=== PATIENT | female | born 1975 | race Caucasian/White ===

== ENCOUNTER → 2019-08-20 08:05 | Outpatient (CLI) | payer OTHER, SELFPAY ==
--- NOTE | 2019-08-20 08:06 | CA_ITS ---
APPROVED REPORT EXAM: Comprehensive 2D, Doppler, and color-flow Echocardiogram Business Unit Director: Radha Cuevas CRT Ht: 5 ft 6 in Wt: 221lbs BSA: 2.09 BP: 158/79 mmHg Indications: Chest Pain, Shortness of Breath, Palpitations, edema, trigeminy, tremors, thyroid disease, 2D Dimensions LVOT 1.89 cm (M/F) 1.5-2.5 M-Mode Dimensions RVDd 2.65 cm (0.9-2.6) LVDd 5.83 cm (3.5-5.7) LVDs 4.03 cm (3.5-5.7) IVSd 1.10 cm (0.6-1.1) PWd 0.37 cm (0.6-1.1) EF (Teich) 57.70% FS 30.90% EDV (Teich) 168.50 mL ESV (Teich) 71.30 mL LV Diastology E/A Ratio 1.58 Mitral Valve MV A Velocity 69.00 (40-130 cm/s) Left Ventricle Left atrium is normal size, left ventricle is normal size, there is no concentric left ventricular hypertrophy, visually estimated ejection fraction 55% with no regional wall motion abnormality. Diastolic parameters are within normal range. Right Ventricle Right atrium and right ventricular normal size and contractility. Aortic Valve Aortic valve is grossly normal, there is no aortic stenosis or aortic insufficiency. Mitral Valve Mitral valve is grossly normal, there is no mitral stenosis, there is mild mitral regurgitation. Tricuspid Valve Tricuspid valve is grossly normal, there is mild tricuspid regurgitation. Tricuspid regurgitation jet velocity is inadequate for calculation of the right ventricular systolic pressure. Pulmonic Valve Pulmonic valve is poorly visualized. Great Vessels Aortic root is normal size. Pericardium No significant pericardial effusion noted. Conclusion 1. Normal left ventricular size, preserved left ventricular systolic function, visually estimated ejection fraction 55% with no regional wall motion abnormality, diastolic parameters are within normal range. 2. Mild mitral and tricuspid regurgitation. 3. No significant pericardial effusion noted. Electronically signed by : Dino Beltran, 08/21/2019 16:49:44
== END ==
PROVIDERS: PCP Nurse Practitioner Family; Visit Provider Internal Medicine Cardiovascular Disease
DX: R00.2 Palpitations (principal); R00.0 Tachycardia, unspecified; E05.90 Thyrotoxicosis, unspecified without thyrotoxic crisis or storm
CPT/HCPCS: 93306

== ENCOUNTER → 2020-01-19 12:08 | Outpatient (CLI) | payer OTHER, SELFPAY ==
[2020-01-19 13:59] LABS: Free T4 (Free Thyroxine) 0.81 ng/dl (0.78-2.19)
== END ==
PROVIDERS: PCP Nurse Practitioner Family; Visit Provider Internal Medicine
DX: E05.90 Thyrotoxicosis, unspecified without thyrotoxic crisis or storm (principal)
CPT/HCPCS: 36415; 84439; 84443

== ENCOUNTER → 2020-08-06 12:19 | Outpatient (CLI) | payer OTHER, SELFPAY ==
--- NOTE | 2020-08-06 12:56 | XR_ITS ---
PROCEDURE: XR SHOULDER RT MIN 2V CLINICAL INDICATION: RT shoulder pain COMPARISON: No exams were available for comparison FINDINGS: No fracture or dislocation. No lytic or blastic change. There is normal mineralization. The joint spaces are well-preserved. No significant degenerative/arthritic changes. No erosive changes evident. Other findings:None. IMPRESSION: No acute findings. Dictated by: Marcelino Tello MD 08/06/2020 14:20 Marcelino Tello MD in [place] 08/06/2020 14:20
--- NOTE | 2020-08-06 12:56 | XR_ITS ---
PROCEDURE: XR CERVICAL SPINE 3V CLINICAL INDICATION: neck pain/ shoulder pain COMPARISON: No exams were available for comparison FINDINGS: There is slight reversal cervical lordosis. Degenerative disc disease is present at C4-C5 and C5-C6 with anterior osteophytes present at both levels. No fracture or dislocation. No lytic or blastic change. There is a small right cervical rib and there is prominent transverse process of C7 on both sides Other findings:None. IMPRESSION: 1. Degenerative disc disease C4-C5 and C5-C6 with reversal cervical lordosis. 2. Small right-sided cervical rib Dictated by: Marcelino Tello MD 08/06/2020 13:36 Marcelino Tello MD in [place] 08/06/2020 13:36
== END ==
PROVIDERS: PCP Nurse Practitioner Family; Visit Provider Orthopaedic Surgery
DX: M54.2 Cervicalgia (principal); M25.511 Pain in right shoulder
CPT/HCPCS: 72040; 73030

== ENCOUNTER 2020-09-21 13:00 | Outpatient (RCR) | payer OTHER, SELFPAY ==
--- NOTE | 2020-08-16 12:01 | HMH.PTOPEV ---
PT Outpatient Evaluation Rehab PT Outpatient Evaluation Start: 08/16/20 11:43 Freq: Status: Active Protocol: Document 08/16/20 11:43 KEENA (Rec: 08/16/20 12:01 PDESEROUX [id number]) Electronically Signed By Tyson Ruiz, PT 08/16/20 11:43 Outpatient Therapy Subjective History Subjective History Pt. is a 44 year old female who presents to Outpatient PT clinic w/ complaints of constant and subacute cervical/RUE P! of insidious onset 2 months ago. Pt. describes symptoms as an throb and ache in the cervical spine that will shoot inferiorly into the RUE that worsens w/ head movements. Pt. denies having any symptoms into the LUE/L cervical anatomical regions.(-TTP L- sided) Recent diagnostic imaging positive for cervical DDD at C4-C5 and C5-C6 with reversal cervical lordosis. Pt . denies having injections for current pathology, and states no symptom relief w/ OTC Ibuprofen or Tylenol. Pt. reports her MD may refer to Pain Management if no symptom relief w/ PT. Pt. RTMD . Current medications include Ibuprofen, Tylenol, and Levothyroxine. PMH includes lumbar OA and DDD, Grave's Disease, and Hypothyroidism. Chief Complaint Pain,Swelling,Paresthesia, Weakness,Decreased Java [id number] Architect Strength Symptom Type Ache,Throb,Burning,Shooting Symptoms Relieved By Rest/Positioning,Ice Symptoms Aggravated By Supine,Sitting,Bending/ Stooping,Twisting,Lifting Prior Functional Limitations None Current Functional Limitations Reaching,Lifting,Dressing, Driving,Sleeping,Recreation Activity,Bending/Stooping Symptom Description Constant and Continuous, Constant but Variable Level of pain today (0-10) 3 Pain scale - at its best (0-10) 3 Pain scale - at its worst (0-10) 8 Cervical Eval Palp
== END 2020-10-01 13:00 | disposition home or self-care (01) ==
LOC: PT.CARL 13:00
PROVIDERS: PCP Nurse Practitioner Family; Visit Provider Orthopaedic Surgery
DX: M54.2 Cervicalgia; M25.511 Pain in right shoulder
CPT/HCPCS: 97012; 97014; 97110; 97140; 97163; G0283

== ENCOUNTER → 2022-03-08 06:46 | Outpatient (CLI) | payer OTHER, SELFPAY ==
[2022-03-08 18:40] LABS: Basophils % 0.9 % (0.1-2.0); Eosinophils # 0.1 K/mm3 (0.0-0.4); Eosinophils % 1.8 % (0.1-12.0); Hematocrit 39.6 % (37.0-47.0); Hemoglobin 12.1 g/dL (12.2-16.2); Lymphocytes # 1.5 K/mm3 (0.7-4.5); Lymphocytes % 29.2 % (10-50); Mean Corpuscular HGB Conc 30.6 g/dL (31.8-35.4); Mean Corpuscular Hemoglobin 30.9 pg (27.0-31.2); Mean Platelet Volume 9.7 fl (7.4-10.4); Monocytes # 0.4 K/mm3 (0.1-1.0); Monocytes % 8.1 % (1.7-9.3); Neutrophils # 3.1 K/mm3 (1.8-7.8); Platelet Count 350 K/mm3 (142-424); Red Blood Count 3.92 M/mm3 (4.20-5.40); Red Cell Distribution Width 13.3 % (11.5-17.5); White Blood Count 5.1 K/mm3 (4.8-10.8)
[2022-03-08 18:45] LABS: Alanine Aminotransferase 15 U/L (12-78); Albumin/Globulin Ratio 1.4 (1.1-1.8); Alkaline Phosphatase 80 U/L (38-126); Anion Gap 12.4 mEq/L (5-15); Aspartate Amino Transferase 25 U/L (14-36); Bilirubin,Total 0.2 mg/dl (0.2-1.3); Blood Urea Nitrogen 10 mg/dl (7-17); Calcium 9.1 mg/dl (8.4-10.2); Carbon Dioxide 24 mmol/L (22.0-30.0); Chloride 107 mmol/L (98-107); Chol/HDL Ratio 4.2 (1-3.5); Cholesterol 144 mg/dl (140-200); Estimated Glomerular Filt Rate 91 ml/min (>60); GFR (African American) 110 ML/MIN (>60); Globulin 2.9 g/dL (1.3-3.2); Glucose 81 mg/dl (74-100); HDL Cholesterol 34 mg/dl (40-60); Potassium 4.4 mmoL/L (3.5-5.1); Sodium 139 mmol/L (136-145); Total Protein,Serum 6.9 g/dl (6.3-8.2); Triglycerides 115 mg/dl (30-150); VLDL Cholesterol 23 mg/dL (0-40)
[2022-03-08 19:16] LABS: Thyroid Stimulating Hormone 0.17 uIU/mL (0.465-4.68)
[2022-03-08 19:27] LABS: Iron 52 ug/dL (37-170)
[2022-03-08 19:37] LABS: Total Iron Binding Capacity 325 ug/dL (265-497)
[2022-03-10 14:15] LABS: Direct LDL Cholesterol 81 mg/dL (100-129)
== END ==
PROVIDERS: PCP Family Medicine; Visit Provider Student in an Organized Health Care Education/Training Program
DX: E05.90 Thyrotoxicosis, unspecified without thyrotoxic crisis or storm (principal); R60.0 Localized edema
CPT/HCPCS: 80053; 80061; 83540; 83550; 84443; 85025

== ENCOUNTER → 2022-05-30 06:12 | Outpatient (CLI) | payer OTHER, SELFPAY ==
[2022-05-30 19:49] LABS: Thyroid Stimulating Hormone 1.32 uIU/mL (0.465-4.68)
== END ==
PROVIDERS: PCP Family Medicine; Visit Provider Family Medicine
DX: R53.83 Other fatigue (principal)
CPT/HCPCS: 84443

== ENCOUNTER → 2022-11-29 23:27 | Outpatient (CLI) | payer OTHER, SELFPAY ==
[2022-11-29 17:13] LABS: Chloride 104 mmol/L (98-107)
[2022-11-29 17:14] LABS: Potassium 4.2 mmoL/L (3.5-5.1); Sodium 139 mmol/L (136-145)
[2022-11-29 17:17] LABS: Anion Gap 14.2 mEq/L (5-15); Blood Urea Nitrogen 12 mg/dl (7-17); Calcium 9.2 mg/dl (8.4-10.2); Carbon Dioxide 25 mmol/L (22.0-30.0); Estimated Glomerular Filt Rate 78 ml/min (>60); GFR (African American) 94 ML/MIN (>60); Glucose 82 mg/dl (74-100)
[2022-11-29 17:20] LABS: Hemoglobin A1C 5.1 % (4.0-6.0)
[2022-11-29 17:50] LABS: Thyroid Stimulating Hormone 4.27 uIU/mL (0.465-4.68)
== END ==
PROVIDERS: PCP Family Medicine; Visit Provider Family Medicine
DX: Z00.00 Encounter for general adult medical examination without abnormal findings (principal); E03.9 Hypothyroidism, unspecified; Z79.899 Other long term (current) drug therapy
CPT/HCPCS: 80048; 83036; 84436; 84443

== ENCOUNTER → 2023-06-18 07:59 | Outpatient (CLI) | payer OTHER, SELFPAY ==
[2023-06-18 17:15] LABS: T4 (Thyroxine) 11.8 ug/dl (5.53-11.0)
[2023-06-18 17:29] LABS: Thyroid Stimulating Hormone 0.76 uIU/mL (0.465-4.68)
== END ==
PROVIDERS: PCP Family Medicine; Visit Provider Family Medicine
DX: E05.90 Thyrotoxicosis, unspecified without thyrotoxic crisis or storm (principal)
CPT/HCPCS: 84436; 84443

== ENCOUNTER 2023-10-12 07:55 | Outpatient (CLI) | payer OTHER, SELFPAY ==
[2023-10-12 16:40] LABS: Anion Gap 13.8 mEq/L (5-15); Blood Urea Nitrogen 14 mg/dl (7-17); Carbon Dioxide 22 mmol/L (22.0-30.0); Chloride 108 mmol/L (98-107); Estimated Glomerular Filt Rate 90 ml/min (>60); GFR (African American) 109 ML/MIN (>60); Glucose 102 mg/dl (74-100); Potassium 4.8 mmoL/L (3.5-5.1); Sodium 139 mmol/L (136-145)
[2023-10-12 16:42] LABS: Basophils # 0.1 K/mm3 (0-0.2); Basophils % 0.8 % (0.1-2.0); Eosinophils # 0.1 K/mm3 (0.0-0.4); Eosinophils % 1.6 % (0.1-12.0); Hematocrit 38.4 % (37.0-47.0); Hemoglobin 12.1 g/dL (12.2-16.2); Lymphocytes # 2.3 K/mm3 (0.7-4.5); Lymphocytes % 35.9 % (10-50); Mean Corpuscular HGB Conc 31.4 g/dL (31.8-35.4); Mean Corpuscular Hemoglobin 29.1 pg (27.0-31.2); Mean Corpuscular Volume 92.8 fl (81-99); Mean Platelet Volume 9.1 fl (7.4-10.4); Monocytes # 0.6 K/mm3 (0.1-1.0); Monocytes % 8.7 % (1.7-9.3); Neutrophils # 3.5 K/mm3 (1.8-7.8); Platelet Count 363 K/mm3 (142-424); Red Blood Count 4.14 M/mm3 (4.20-5.40); Red Cell Distribution Width 14.9 % (11.5-17.5); White Blood Count 6.5 K/mm3 (4.8-10.8)
[2023-10-12 17:12] LABS: Thyroid Stimulating Hormone 0.26 uIU/mL (0.465-4.68)
== END 2023-10-12 23:59 | disposition home or self-care (01) ==
LOC: LAB.DROPOF 10-14 07:56
PROVIDERS: PCP Family Medicine; Visit Provider Family Medicine
DX: E03.9 Hypothyroidism, unspecified (principal); E05.90 Thyrotoxicosis, unspecified without thyrotoxic crisis or storm
CPT/HCPCS: 80048; 84443; 85025

== ENCOUNTER 2024-07-24 14:20 | Outpatient (CLI) | payer OTHER, SELFPAY ==
[2024-07-24 16:41] LABS: Basophils # 0.1 K/mm3 (0-0.2); Basophils % 0.8 % (0.1-2.0); Eosinophils # 0.1 K/mm3 (0.0-0.4); Hematocrit 34.7 % (37.0-47.0); Hemoglobin 11.1 g/dL (12.2-16.2); Lymphocytes # 1.7 K/mm3 (0.7-4.5); Lymphocytes % 29.2 % (10-50); Mean Corpuscular Hemoglobin 28.9 pg (27.0-31.2); Mean Corpuscular Volume 90.4 fl (81-99); Mean Platelet Volume 11.4 fl (7.4-10.4); Monocytes # 0.4 K/mm3 (0.1-1.0); Neutrophils # 3.6 K/mm3 (1.8-7.8); Neutrophils % 60.7 % (37.0-80.0); Platelet Count 373 K/mm3 (142-424); Red Blood Count 3.84 M/mm3 (4.20-5.40); Red Cell Distribution Width 13.9 % (11.5-17.5)
[2024-07-24 17:23] LABS: Albumin Level 4.3 g/dl (3.5-5.0); Chloride 105 mmol/L (98-107); Potassium 4.4 mmoL/L (3.5-5.1); Sodium 139 mmol/L (136-145)
[2024-07-24 17:26] LABS: Alanine Aminotransferase 19 U/L (12-78); Albumin/Globulin Ratio 1.4 (1.1-1.8); Alkaline Phosphatase 65 U/L (38-126); Anion Gap 15.4 mEq/L (5-15); Aspartate Amino Transferase 27 U/L (14-36); Bilirubin,Total 0.2 mg/dl (0.2-1.3); Blood Urea Nitrogen 19 mg/dl (7-17); Carbon Dioxide 23 mmol/L (22.0-30.0); Estimated Glomerular Filt Rate 67 ml/min (>60); GFR (African American) 82 ML/MIN (>60); Globulin 3.1 g/dL (1.3-3.2); Total Protein,Serum 7.4 g/dl (6.3-8.2)
[2024-07-24 17:27] LABS: Glucose 107 mg/dl (74-100)
[2024-07-24 17:44] LABS: T4 (Thyroxine) 11.2 ug/dl (5.53-11.0)
[2024-07-24 17:58] LABS: Thyroid Stimulating Hormone 5.98 uIU/mL (0.465-4.68)
[2024-07-24 18:20] LABS: HIV Combo NEGATIVE (Negative)
[2024-07-24 18:54] LABS: Hepatitis C Ab Qual. W/ RFX NEGATIVE (Negative)
== END 2024-07-24 23:59 | disposition home or self-care (01) ==
LOC: LAB.DROPOF 07-25 08:38
PROVIDERS: PCP Family Medicine; Visit Provider Family Medicine
DX: E05.90 Thyrotoxicosis, unspecified without thyrotoxic crisis or storm (principal); Z11.4 Encounter for screening for human immunodeficiency virus [HIV]; Z11.59 Encounter for screening for other viral diseases
CPT/HCPCS: 80053; 84436; 84443; 85025; 86803; 87389

== ENCOUNTER 2024-09-29 13:45 | Outpatient (CLI) | payer OTHER, SELFPAY ==
[2024-09-29 16:45] LABS: Basophils % 0.9 % (0.1-2.0); Eosinophils % 0.9 % (0.1-12.0); Hematocrit 37.7 % (37.0-47.0); Hemoglobin 12.3 g/dL (12.2-16.2); Lymphocytes # 1.1 K/mm3 (0.7-4.5); Mean Corpuscular HGB Conc 32.6 g/dL (31.8-35.4); Mean Corpuscular Hemoglobin 30.8 pg (27.0-31.2); Mean Corpuscular Volume 94.5 fl (81-99); Mean Platelet Volume 11.3 fl (7.4-10.4); Monocytes # 0.6 K/mm3 (0.1-1.0); Monocytes % 13.1 % (1.7-9.3); Neutrophils # 2.8 K/mm3 (1.8-7.8); Neutrophils % 62.1 % (37.0-80.0); Platelet Count 294 K/mm3 (142-424); Red Blood Count 3.99 M/mm3 (4.20-5.40); Red Cell Distribution Width 15.2 % (11.5-17.5); White Blood Count 4.6 K/mm3 (4.8-10.8)
[2024-09-29 17:28] LABS: Iron 37 ug/dL (37-170)
[2024-09-29 17:38] LABS: Total Iron Binding Capacity 353 ug/dL (265-497)
[2024-09-29 18:00] LABS: Thyroid Stimulating Hormone 1.85 uIU/mL (0.465-4.68)
== END 2024-09-29 23:59 | disposition home or self-care (01) ==
LOC: LAB.DROPOF 09-30 13:24
PROVIDERS: PCP Nurse Practitioner Family; Visit Provider Nurse Practitioner Family
DX: D64.9 Anemia, unspecified (principal); E03.9 Hypothyroidism, unspecified
CPT/HCPCS: 83540; 83550; 84436; 84443; 85025

== ENCOUNTER 2025-02-11 10:27 | Outpatient (CLI) | payer OTHER, SELFPAY ==
[2025-02-11 16:54] LABS: Hematocrit 32.9 % (37.0-47.0); Hemoglobin 10.3 g/dL (12.2-16.2); Immature Granulocytes % 0.2 %; Mean Corpuscular HGB Conc 31.3 g/dL (31.8-35.4); Mean Corpuscular Hemoglobin 30.2 pg (27.0-31.2); Mean Corpuscular Volume 96.5 fl (81-99); Nucleated Red Blood Cells % 0 %; Platelet Count 357 K/mm3 (142-424); Red Blood Count 3.41 M/mm3 (4.20-5.40); Red Cell Distribution Width-SD 46.6 fL; White Blood Count 4.8 K/mm3 (4.8-10.8)
[2025-02-11 19:15] LABS: Thyroid Stimulating Hormone 2.27 uIU/mL (0.465-4.68)
[2025-02-12 10:22] LABS: Hepatitis B Surface Antigen Negative (Negative)
[2025-02-12 12:12] LABS: FSH 14.0 mIU/mL (.)
--- OUTSIDE RECORDS SUMMARY | 2025-02-13 10:30 | XMS_ITS | Clinical Summary ---
Author Organization [facility] Address [address] [place] [address] Care Team Providers Care Precinct Commanding Officer Name Role Phone Venkata Grady MD Primary Care Provider [phone] Allergies No known active allergies Medications levothyroxine (Synthroid) 200 MCG tabletIndication s:Hypothyroidism , unspecified type Take 1 tablet (200 mcg) by mouth 1 (one) time each day before breakfast. 90 tablet 3 03/28/2023 Active Active Problems Problem Noted Date Diagnosed Date Graves disease 03/18/2020 03/27/2023 Hypothyroidism 02/02/2020 03/27/2023 Sprain of lumbar region 09/14/2016 03/27/20 23 Family History Medical History Relation Name Comments Diabetes Mother Hypertension Mother Relation Name Status Comments Mother Social History Tobacco Use Types Packs/Day Years Used Date Smoking Tobacco: Never Smokeless Tobacco: Never Tobacco Cessation:Counseling Given: Not Answered Alcohol Use Standard Drinks/Week Comments No 0 (1 standard drink = 0.6 oz pur e alcohol) Comments No Sex and Gender Information Value Date Recorded Sex Assigned at Not on file Legal Sex Female 8:30 PM EDT Gender Identity Not on file Sexual Orientation Not on file Last Filed Vital Signs Vital Sign Reading Time Taken Comments Blood Pressure 123/80 03/27/2023 3:00 PM EDT Pulse 84 03/27/2023 3:00 PM EDT Temperature 36.9 C (98.4 F) 03/27/2023 3:00 PM EDT Respiratory Rate 14 03/27/2023 3:00 PM EDT Oxygen Saturation 99% 03/27/2023 3:00 PM EDT Inhaled Oxygen Concentration - - Weight 108 kg (238 lb 1.6 oz) 03/27/2023 3:00 PM EDT Height 167.6 cm (5' 6 ) 03/27/2023 3:00 PM EDT Body Mass Index 38.43 03/27/2023 3:00 PM EDT Plan of Treatment Health Maintenance Due Date Last Done Comments [facility]-Depression Screening 1977 [facility]-/Child/Adol SDOH Screenings 1977 [facility]- SDOH Screenings 09/05/1995 [facility]-Adult SDOH Screenings 09/05/1995 [facility]-DTaP,Tdap,and Td Vaccine s (1 - Tdap) 1996 [facility]-Hepatitis B Vaccines (1 of 3 - 19+ 3-dose series) 1996 CT Colonography 2022 Colonoscopy 2022 FIT-DNA 2022 FIT 2022 FOBT 2022 Sigmoidoscopy 2022 [facility]-Colorectal Cancer Screening 2022 [id number] Vaccine (1 - 20 24-25 season) 2024 [facility]-Influenza Vaccine (#1) 2025 [facility]-Pap Smear 03/27/2026 03/27/2023 [facility]-Zoster Vaccines (1 of 2) 09/05/2027 [facility]-Cervical Cancer Screening 03/27/2028 [facility]-HPV/Cotest 03/27/2028 03/27/2023 [facility]-HIV Screening Completed 10/03/2020 [facility]-Hepatitis C Screening Completed 10/03/2020 [facility]-Obesity Intervention Completed 03/27/2023 HPV Vaccines Aged Out No longer eligi ble based on patient's age to complete this topic [facility]-HIB Vaccines Aged Out No longer e ligible based on patient's age to complete this topic [facility]-Hepatitis A Vaccines Aged Out No longer eligible based on patient's age to complete this topic [facility]-IPV Vaccines Aged Out No longer e ligible based on patient's age to complete this topic [facility]-Pneumococcal Vaccine: Pediatrics (0 to 5 Years) and At-Risk Patients (6 to 49 Years) Aged Out No long er eligible based on patient's age to complete this topic [facility]-Rotavirus Vaccines Aged Out No lo nger eligible based on patient's age to complete this topic Procedures Procedure Name Priority Date/Time Associated Diagnosis Comments PAP TEST - CYTOLOGY Routine 03/27/2023 4 :26 PM EDT Encounter for gynecological examination (general) (routine) without abnormal findings HEPATITIS C ANTIBODY - ED W/REFLEX TO HCV QUANT PCR Routine 10/03/2020 8:18 PM EDT HIV 1/2 ANTIBODY/ANTIGEN SCREEN WITH REFLEX TO HIV I/II DIFFERENTIATION Routine 10/03/2020 8:18 PM EDT from Last 3 Months or Most Recently Relevant to Health Maintenance Results * (ABNORMAL) Pap Test (03/27/2023 4:26 PM EDT) Case Report Cytology Case: [id number] Authorizing Provider: Blessing Sanchez APRN, DNP Collected: 03/27/2023 1626 Ordering Location: Obstetrics & Gynecology Received: 03/28/2023 1012 First Screen: Yaritza Cameron Pathologist: Ronaldo Ellsworth MD Specimen: ThinPrep Pap Test, Liquid-Based Cervical/Vaginal 04/04/2023 12:28 PM EDT [facility] Interpretation NEGATIVE FOR INTRAEPITHELIAL LESION OR MALIGNANCY ENDOMETRIAL CELLS PRESENT IN A WOMAN 45 YEARS OF AGE OR OLDER(A) 04/04/2023 12:28 PM EDT [facility] at 1227 EDT Other Findings Shift in shaheed suggestive of bacterial vaginosis. 04/04/2023 12:28 PM EDT [facility] Specimen Adequacy Satisfactory for evaluation; endocervical/johnson sformation zone component present. Slide imaged by the ThinPrep Imaging system and selected 22 mullen reviewed then full manual screening. 04/04/2023 12:28 PM EDT [facility] Cervical cytology is a screening test primarily for squamous cancers and precursors and has associated false negative and positive results. New technologies such as liquid based sampling may decrease but will not eliminate all false negative results. Regular screening and follow-up of unexplained clinical signs and symptoms are recommended to minimize false negative results. Please see the ASCCP website (www.asccp.org)fo r followup recommendations. If HPV testing was requested, correlation with the results is suggested (please call Microbiology at [phone] for results). 04/04/2023 12:28 PM EDT [facility] Menstrual Status Cyclic 04/04/20 12:28 PM EDT [facility] Contraceptive History Intrauterine device 04/04/2023 12:28 PM EDT [facility] Screening Type Routine Screen 2022 12:28 PM EDT [facility] High Risk? No 04/04/2023 12:28 PM EDT [facility] HPV Testing Requested? Request HPV Testing Regardless of Pap Test Findings 04/04/2023 12:28 PM EDT [facility] Previous Cancer History No 04/04/2023 12:28 PM EDT [facility] Clinical Information Z01.419 - Encounter for gynecological examination (general) (routine) without abnormal findings [ICD-10-CM] 04/04/2023 12:28 PM EDT [facility] Last Menstrual Period 03/19/2023 04/04/2023 12:28 PM EDT [facility] Swab Vaginal and cervical cytologic material / Unknown Non-blood Collection / Unknown 03/27/2023 4:26 PM EDT 03/28/2023 10:12 AM EDT Blessing Sanchez RN LAB CYTOLOGY ORDERABLES Final Result Performing Organization Address City/[facility]/ZIP Co de Phone Number [facility] [address] [place] [address] * HIV 1 & 2 Antibody/Antigen Screen (10/03/2020 8:18 PM EDT) Pathologist [facility] HIV 1 Result NONREACTIVE Screening for HIV 1 and 2 antibodies is NONREACTIVE. No confirmatory testing is required. SUNQUEST 10/03/2020 8:18 PM EDT 10/03/2020 8:52 PM EDT Keanu James LAB BLOOD ORDERABLES Final Resul t SUNQUEST * [place] Hepatitis C Antibody (10/03/2020 8:18 PM EDT) Pathologist [facility] Hepatitis C Ab NEGATIVE Reference Range: Negative SUNQUEST 10/03/2020 8:18 PM EDT 10/03/2020 8:52 PM EDT James Salmon MD LAB BLOOD ORDERABLES Final Re sult SUNQUEST from Last 3 Months or Most Recently Relevant to Health Maintenance Insurance [facility] MEDICAID Care Teams Precinct Commanding Officer Relationship Specialty Start Date End Date Venkata Grady MD [address] [place] [address] [address] [place] [address] PCP - General 11/12/20
--- OUTSIDE RECORDS SUMMARY | 2025-02-13 10:30 | XMS_ITS | Clinical Summary ---
Author Organization [facility] Address [address] [place] [address] Care Team Providers Care Director College Name Role Phone Sid Barclay MD Primary Care Provider Allergies No known active allergies Medications cyclobenzaprine (FLEXERIL) 10 MG tablet 0 08/10/2016 Active HYDROcodone-acetam inophen (NORCO) 7.5-325 MG per tablet 08/14/2016 Active meloxicam (MOBIC) 15 MG tablet 0 08/21/2016 Active naproxen (NAPROSYN) 500 MG tablet 0 08/10/2016 Active tiZANidine (ZANAFLEX) 4 MG tablet 08/14/2016 Active traMADol (ULTRAM) 50 MG tablet 0 08/21/2016 Active Active Problems Problem Noted Date Diagnosed Date Sprain of lumbar region 09/14/2016 Family History Medical History Relation Name Comments No Known Problems Father Diabetes Mother Hypertension Mother Relation Name Status Comments Father Alive Mother Alive Social History Tobacco Use Types Packs/Day Years Used Date Smoking Tobacco: Never Smokeless Tobacco: Never Alcohol Use Standard Drinks/Week Comments Yes 0 (1 standard drink = 0.6 oz pur e alcohol) Rare Abuse Screen Answer Date Recorded Unsafe at Home or Work/School Not on file Feels Threatened by Someone? Not on file 03/2023 Does Anyone Keep You from Co ntacting Others or Doint Things Outside the Home? Not on file 04/09/2023 Physical Sign of Abuse Present Not on file 1 Housing Stability Answer Date Recorded Current Living Arrangements Not on file 03/2023 Potentially Unsafe Housing Conditions Not on maci e 04/09/2023 Family and Community Support Answer Johan e Recorded Help with Day-to-Day Activities Not on file 04/09/2023 Lonely or Isolated Not on file 04/09/2023 Employment Answer Date Recorded Do you want help finding or keeping work or a jorge b? Not on file 04/09/2023 Disabilities Answer Date Recorded Concentrating, Remembering, or Making Decisions Difficulty Not on file 04/09/2023 Doing Errands Independently Difficulty Not on fi le 04/09/2023 Education Answer Date Recorded Help with school or training? Not on file Preferred Language Not on file 04/09/2023 Comments No Sex and Gender Information Value Date Recorded Sex Assigned at Not on file Legal Sex Female 11:02 AM EDT Gender Identity Not on file Sexual Orientation Not on file Last Filed Vital Signs Vital Sign Reading Time Taken Comments Blood Pressure - - Pulse - - Temperature 36.3 C (97.4 F) 09/14/2016 11:24 AM EDT Respiratory Rate - - Oxygen Saturation - - Inhaled Oxygen Concentration - - Weight 96.8 kg (213 lb 6.4 oz) 09/14/2016 11:24 AM EDT Height 167.6 cm (5' 6 ) 09/14/2016 11:24 AM EDT Body Mass Index 34.44 09/14/2016 11:24 AM EDT Plan of Treatment Health Maintenance Due Date Last Done Comments Annual Gynecologic Pelvic an d Breast Exam 1975 TDAP/TD VACCINES (1 - Tdap) 1996 ANNUAL PHYSICAL 10/10/2016 HEPATITIS C SCREENING 10/10/2016 MAMMOGRAM 2017 COLOGUARD 2022 COLON CANCER SCREENING 5 YEA R SIGMOIDOSCOPY 2022 COLONOSCOPY 2022 [address]AL CANCER SCREENING 2022 CT COLONOGRAPHY 2022 FECAL OCCULT BLOOD TEST 2022 FIT Testing (1 year) 2022 COVID-19 Vaccine ( - 2023-2 5 season) 2024 INFLUENZA VACCINE 04/01/2025 Pneumococcal Vaccine 0-49 Aged Out No longer eligible based on patient's age to complete this topic Insurance [employer] Care Teams Director College Relationship Specialty Start Date End Date Sid Barclay MD [address] [facility] [address] ATTN: [facility] [address] PCP - General Emergency Medicine 08/31/16
== END 2025-02-11 23:59 | disposition home or self-care (01) ==
LOC: LAB.DROPOF 02-13 10:28
PROVIDERS: PCP Family Medicine; Visit Provider Family Medicine
DX: E03.9 Hypothyroidism, unspecified (principal); Z11.59 Encounter for screening for other viral diseases; N92.0 Excessive and frequent menstruation with regular cycle
CPT/HCPCS: 83001; 84443; 85025; 87340

== ENCOUNTER 2025-03-31 14:38 | Outpatient (CLI) | payer OTHER, SELFPAY ==
--- OUTSIDE RECORDS SUMMARY | 2025-03-31 14:40 | XMS_ITS | Clinical Summary ---
Author Organization [facility] Address [address] [place] [address] Care Team Providers Care Advertising Photographer Name Role Phone Sid Barclay MD Primary [...] TEST 2022 FIT Testing (1 year) 2022 INFLUENZA VACCINE 01/30/2025 Pneumococcal Vaccine 0-49 Aged Out No longer eligible based on patient's age to complete this topic Insurance [facility] Care Teams Advertising Photographer Relationship Specialty Start Date End Date Sid Barclay MD [address] [facility] [address] ATTN: [place] [id number] PCP - General Emergency Medicine 08/31/16
--- OUTSIDE RECORDS SUMMARY | 2025-03-31 14:40 | XMS_ITS | Clinical Summary ---
Author Organization [facility] Address [address] [place] [address] Care Team Providers Care Bullet Casting Operator Name Role Phone Venkata Grady MD Primary Care Provider [phone] Allergies No known active allergies Medications levothyroxine [...] 2022 Sigmoidoscopy 2022 [facility]-Colorectal Cancer Screening 2022 [id number] Vaccine (1 - 20 24-25 season) 2025 [facility]-Influenza Vaccine (#1) 2025 [facility]-Pap Smear 03/27/2026 [...] 4:26 PM EDT) Case Report Cytology Case: [id number] Authorizing Provider: Blessing Sanchez APRN, DNP Collected: 03/27/2023 1626 Ordering Location: Obstetrics & Gynecology Received: 03/28/2023 1012 First Screen: Yaritza Cameron Pathologist: Ronaldo Ellsworth MD Specimen: ThinPrep Pap Test, Liquid-Based Cervical/Vaginal 04/04/2023 12:28 PM EDT [facility] Interpretation NEGATIVE FOR INTRAEPITHELIAL LESION OR MALIGNANCY ENDOMETRIAL CELLS PRESENT IN A WOMAN 45 YEARS OF AGE OR OLDER(A) 04/04/2023 12:28 PM EDT [facility] at 1227 EDT Other Findings Shift in shaheed suggestive of bacterial vaginosis. 04/04/2023 12:28 PM EDT [facility] Specimen Adequacy Satisfactory for evaluation; endocervical/johnson sformation zone component present. Slide imaged by the ThinPrep Imaging system and selected 22 mullen reviewed then full manual screening. 04/04/2023 12:28 PM EDT [facility] Cervical cytology is a screening test [...] results is suggested (please call Microbiology at [phone] for results). 04/04/2023 12:28 PM EDT [facility] Menstrual Status Cyclic 04/04/20 12:28 PM EDT [facility] Contraceptive History Intrauterine device 04/04/2023 12:28 PM EDT [facility] Screening Type Routine Screen 2022 12:28 PM EDT [facility] High Risk? No 04/04/2023 12:28 PM EDT [facility] HPV Testing Requested? Request HPV Testing Regardless of Pap Test Findings 04/04/2023 12:28 PM EDT [facility] Previous Cancer History No 04/04/2023 12:28 PM EDT [facility] Clinical Information Z01.419 - Encounter for gynecological examination (general) (routine) without abnormal findings [ICD-10-CM] 04/04/2023 12:28 PM EDT [facility] Last Menstrual Period 03/19/2023 04/04/2023 12:28 PM EDT [facility] Swab Vaginal and cervical cytologic material / Unknown Non-blood Collection / Unknown 03/27/2023 4:26 PM EDT 03/28/2023 10:12 AM EDT Blessing Sanchez RN LAB CYTOLOGY ORDERABLES Final Result Performing Organization Address City/[facility]/ZIP Co de Phone Number [facility] [address] [place] [address] * HIV 1 & 2 Antibody/Antigen Screen (10/03/2020 8:18 PM EDT) Pathologist [facility] HIV 1 Result NONREACTIVE Screening for HIV 1 and 2 antibodies is NONREACTIVE. No confirmatory testing is required. SUNQUEST 10/03/2020 8:18 PM EDT 10/03/2020 8:52 PM EDT eKanu James LAB BLOOD ORDERABLES Final Resul t SUNQUEST * [place] Hepatitis C Antibody (10/03/2020 8:18 PM EDT) Pathologist [facility] Hepatitis C Ab NEGATIVE Reference Range: Negative SUNQUEST 10/03/2020 8:18 PM EDT 10/03/2020 8:52 PM EDT James Salmon MD LAB BLOOD ORDERABLES Final Re sult SUNQUEST from Last 3 Months or Most Recently Relevant to Health Maintenance Insurance AENA [facility] MEDICAID Care Teams Bullet Casting Operator Relationship Specialty Start Date End Date Venkata Grady MD [address] [place] [address] [address] [place] [address] PCP - General 11/12/20
--- NOTE | 2025-03-31 14:45 | MM_ITS ---
PROCEDURE INFORMATION: Exam: Bilateral Screening 3D Mammography Exam date and time: 03/31/2025 2:42 PM Age: 49 years old Clinical indication: Screening exam. TECHNIQUE: Imaging protocol: Bilateral Screening tomosynthesis and 2D mammography including computer-aided detection (CAD) when performed. COMPARISON: SCREEN MAMMO W CAD BILAT 05/23/2023 10:35 AM FINDINGS: MAMMOGRAPHY: Breast composition: The breasts are heterogeneously dense, which may obscure small masses. Mass: No suspicious masses. Architectural distortion: None. Calcifications: No suspicious calcifications. Asymmetric density: None. Skin thickening: None. Axillary adenopathy: None. IMPRESSION: No mammographic evidence of malignancy. Annual screening is recommended unless otherwise clinically indicated. ASSESSMENT: BI-RADS Category 1: Negative.
--- NOTE | 2025-03-31 15:15 | US_ITS ---
PROCEDURE: US TRANSVAGINAL CLINICAL INDICATION: abnormal uterine bleeding COMPARISON: No exams were available for comparison FINDINGS: Transvaginal sonographic images of the pelvis were obtained. UTERUS: 8.9cm x 9.1cmx 8.3cm retroverted with a combined endometrial thickness of 10.4mm. Fibroid 1: Posterior fibroid that measures 5.5 cm x 5.0 cm x 5.2 cm. Fibroid 2: 1.7 cm x 1.4 cm by 1.6 cm. LEFT OVARY: 3.7 cmx1.9 cmx2.3cm with a volume of 8.4ml. There is a follicle measuring 1.5 cm by 2.8 cm x 2.0 cm. RIGHT OVARY: 5.6cmx 4.8 cmx3.1cm with a volume of 43.2ml. Follicle 1. 2.4 cm x 2.5 cm x 2.8 cm. Follicle 2. 2.2 cm x 2.3 cm x 3.3 cm Both ovaries are seen and appear normal. Doppler flow to both ovaries are seen. There is trace fluid in the cul-de-sac. IMPRESSION: 1. Retroverted, enlarged uterus. The endometrium measures 10.4 mm. There are 2 fibroids within the uterus measuring 5.5 cm and 1.7 cm. 2. Both ovaries are seen and appear normal. They both contain follicles. 3. There is trace fluid in the cul-de-sac Dictated by: Donavon Locke MD 03/31/2025 16:58 Donavon Locke MD in [place] 03/31/2025 16:58
== END 2025-03-31 23:59 | disposition home or self-care (01) ==
LOC: RAD 14:39
PROVIDERS: PCP Family Medicine; Visit Provider Obstetrics & Gynecology
DX: Z12.31 Encounter for screening mammogram for malignant neoplasm of breast (principal); R92.333 Mammographic heterogeneous density, bilateral breasts; N85.4 Malposition of uterus; N85.2 Hypertrophy of uterus; D25.9 Leiomyoma of uterus, unspecified; N83.02 Follicular cyst of left ovary; N83.01 Follicular cyst of right ovary; Z98.890 Other specified postprocedural states
CPT/HCPCS: 76830; 77063; 77067